=== PATIENT | female | born 1960 | race Caucasian/White ===

== ENCOUNTER → 2020-05-14 | Outpatient (CLI) | payer OTHER ==
[~2020-05-14] MED LIST: AUGMENTIN 875-1 EACH PO; CELEXA20 MG PO; ENULOSE10 GM/15 M PO; FLAGYL500 MG PO; IBUPROFEN800 MG PO; LORTAB 7.5-3251 EACH PO; OMEPRAZOLE20 MG PO; SYNTHROID75 MCG PO
[2020-05-14 11:52] LABS: HEMOGLOBIN 14.2 gm/dl (12.3-15.3); RED BLOOD COUNT 4.83 M/UL (4.00-5.10); WHITE BLOOD COUNT 5.3 K/UL (4.5-11.0)
[2020-05-14 14:03] LABS: BUN/CREATININE RATIO 27 (0-10)
== END ==
LOC: LAB 09:52
PROVIDERS: Family Medicine
DX: Z13.220 Encounter for screening for lipoid disorders (principal); R53.83 Other fatigue; E03.9 Hypothyroidism, unspecified; E55.9 Vitamin D deficiency, unspecified
CPT/HCPCS: 36415; 80053; 80061; 84439; 84443; 85027

== ENCOUNTER 2020-06-22 22:26 | Emergency (ER) | payer OTHER ==
[~2020-06-22 22:26] MED LIST changes: -AUGMENTIN 875-1 EACH PO; -FLAGYL500 MG PO
[2020-06-22 23:25] LABS: HEMOGLOBIN 13.1 gm/dl (12.3-15.3); RED BLOOD COUNT 4.46 M/UL (4.00-5.10); WHITE BLOOD COUNT 10.6 K/UL (4.5-11.0)
[2020-06-22 23:42] LABS: BUN/CREATININE RATIO 16 (0-10)
[2020-06-23] MEDS ORDERED: FLAGYL500 MG PO (02:46)
[2020-06-23] MEDS ORDERED: AUGMENTIN 875-1 EACH PO (02:46)
== END 2020-06-23 03:35 | disposition home or self-care (01) ==
LOC: ER1 22:26
PROVIDERS: Family Medicine
DX: K62.5 Hemorrhage of anus and rectum (principal); K52.9 Noninfective gastroenteritis and colitis, unspecified; Z90.49 Acquired absence of other specified parts of digestive tract; Z79.899 Other long term (current) drug therapy
CPT/HCPCS: 80053; 81001; 82150; 83690; 85025; 85610; 96374; 96375; 99284; C9113; J2270; J2405; Q9967

== ENCOUNTER → 2021-06-03 | Outpatient (CLI) | payer OTHER ==
[~2021-06-03] MED LIST changes: +AUGMENTIN 875-1 EACH PO; +FLAGYL500 MG PO
== END ==
LOC: MAMO 14:24
DX: Z12.31 Encounter for screening mammogram for malignant neoplasm of breast (principal)
CPT/HCPCS: 77063; 77067

== ENCOUNTER → 2021-07-09 | Outpatient (CLI) | payer OTHER | LOC: RAD 09:16 | DX: M77.9 Enthesopathy, unspecified (principal); M10.9 Gout, unspecified; M25.461 Effusion, right knee | CPT/HCPCS: 73564 ==

== ENCOUNTER → 2021-10-20 | Outpatient (CLI) | payer OTHER | LOC: KOH-I 11:22 | DX: M79.672 Pain in left foot (principal); S92.252A Displaced fracture of navicular [scaphoid] of left foot, initial encounter for closed fracture | CPT/HCPCS: 73630 ==